=== PATIENT | female | born 1960 | race Caucasian/White ===

== ENCOUNTER → 2019-03-10 | Outpatient (CLI) | payer BC, SELFPAY ==
--- NOTE | 2019-03-10 13:29 | VDLE_ITS ---
Reason For Study: pain RIGHT LEFT GSV is normal. CFV is compressible, spontaneous, phasic, CFV is compressible, spontaneous, phasic, competent, and demonstrates normal competent and demonstrates normal augmentation. augmentation. FV is compressible, spontaneous, phasic, competent and demonstrates normal augmentation. POP V is compressible, spontaneous, phasic, competent and demonstrates normal augmentation. T/P Trunk is compressible. PTV is compressible. RT PerV is compressible. Procedure Exam performed in department. The exam was diagnostic. A preliminary report was called and/or faxed to Dr. Holt. Interpretation Summary Deep veins of the right lower extremity are patent and compressible segmentally. There is no evidence of right lower extremity deep vein thrombosis. Valvular competence appears intact within the proximal deep venous system on the right . The right great saphenous vein appears patent and compressible segmentally. Ordering Physician: Bill Holt Performed By: Gabo Bowers RVT
== END | disposition home or self-care (01) ==
LOC: CVS 13:26
PROVIDERS: Family Provider Family Medicine; PCP Family Medicine; Referring Provider Family Medicine; Visit Provider Family Medicine
DX: M79.604 Pain in right leg (principal)
CPT/HCPCS: 93971

== ENCOUNTER → 2024-09-09 | Outpatient (CLI) | payer BC, SELFPAY ==
--- NOTE | 2024-09-09 16:35 | MRI_ITS ---
EXAM: MRI of the face without contrast CLINICAL HISTORY: Small lump felt by patient on forehead head COMPARISON: None. TECHNIQUE: Multi planar multi sequence coned-down images are obtained of the forehead with markers on either side of the palpable lump. FINDINGS: Tiny cortical lesion identified at the area of concern. The small out clubbing of cortex a represent exostosis or an osteoma other similar benign cortical lesion. MRI/Orbit Face Neck W/WO Contrast IMPRESSION: No acute process. Small benign-appearing cortical bony protrusion at the area of concern Reading [facility]
== END | disposition home or self-care (01) ==
LOC: MRI 16:19
PROVIDERS: PCP Family Medicine; Referring Provider Plastic Surgery; Visit Provider Plastic Surgery
DX: D48.19 Other specified neoplasm of uncertain behavior of connective and other soft tissue (principal)
CPT/HCPCS: 70543; A9575

== ENCOUNTER → 2024-09-20 | Outpatient (CLI) | payer BC, SELFPAY ==
--- NOTE | 2024-09-20 13:24 | US_ITS ---
PROCEDURE: HEAD/NECK SOFT TISSUE (USH/N SOFT), 09/20/2024 REASON FOR EXAM: RIGHT PARATID AREA COMPARISON: None TECHNIQUE: Grayscale and color Doppler imaging of the RIGHT parotid region was performed. Imaging of the contralateral side was performed for comparison purposes. FINDINGS: RIGHT parotid measures 5.2 x 3.4 x 1.2 cm. LEFT parotid measures 4.9 x 3.3 x 1.4 cm. Both demonstrate homogeneous echogenic appearance. Specific region of clinical concern along the medial RIGHT parotid region demonstrates a portion of the parotid gland without discrete sonographic abnormality. US/Head/Neck Soft Tissue IMPRESSION: No discrete sonographic abnormality in the region of clinical concern, with asy mmetric RIGHT parotid tissue in the area. If unexplained exam findings or symptoms persist, consider cross-sectional imaging such as CT/MRI. Reading Location: [id number]
== END | disposition home or self-care (01) ==
PROVIDERS: PCP Family Medicine; Referring Provider Plastic Surgery; Visit Provider Plastic Surgery
DX: D48.19 Other specified neoplasm of uncertain behavior of connective and other soft tissue (principal)
CPT/HCPCS: 76536